=== PATIENT | male | born 1965 | race Caucasian/White ===

== ENCOUNTER 2021-08-19 13:00 | Inpatient (IN) | payer OTHER ==
[~2021-08-19] VITALS: Ht 180.3 cm; Wt 148.8 kg
--- NOTE | 2021-08-19 13:00 | NUR ---
ARRIVAL PATIENT ARRIVED TO ED4 VIA W/C, C/O BILATERAL LEG AND ABDOMEN SWELLING FOR THE PAST COUPLE OF DAYS, WENT TO SEE HIS PCP AND WAS SENT TO THE ED FOR EVAL, VITAL SIGNS OBTAINED AND DOCTOR NOTIFIED OF PATIENT'S ARRIVAL.
[2021-08-19 13:20] VITALS: BP 142/102
[2021-08-19 13:25] VITALS: BP 142/102
[2021-08-19] MEDS ORDERED: LASIX IV STA (13:28)
[2021-08-19] MEDS ORDERED: LISI1TAB41 PO (13:32)
[2021-08-19] MEDS ORDERED: LASIX ONE (13:39)
[2021-08-19 13:43] LABS: BASOPHIL % 0.6 % (0.0-0.2); EOSINOPHIL % 0.3 % (0.0-5.0); LYMPHOCYTES # 1.52 10^3/uL1 (1.0-4.8); LYMPHOCYTES % 21.8 % (24.0-44.0); MEAN CORP HGB 30.2 pg (26-34); MONOCYTES # 0.5 10^3/uL (0.3-0.8); MONOCYTES % 6.9 % (5.0-12.0); NEUTROPHIL # 4.9 10^3/uL (1.8-7.7); NEUTROPHILS % 70.1 % (41.0-85.0); PLATELET COUNT 272 10^3/uL (150-400); RED CELL DISTRIBUTION WIDTH 14.7 % (11.5-14.5)
--- NOTE | 2021-08-19 13:44 | PCM.EKG ---
[facility] Test Date: 2021-08-19 Test Time: 13:40:26 Pat Name: TRACI GAINES [facility]: [id number] Room: Gender: M Admissions Manager Rn: UBALDO : 1965 Requested By: BISHOP TRIVEDI Order Number: [id number] Reading MD: Measurements Intervals [place] Rate: 130 P: ID: QRS: 54 QRSD: 90 T: 70 QT: 335 QTc: 493 Interpretive Statements Atrial fibrillation Borderline low voltage, extremity leads Nonspecific T abnormalities, lateral leads Borderline prolonged QT interval No previous ECG available for comparison Please click the below link to view image of tracing.
[2021-08-19] MEDS ORDERED: METO50TA6 PO (13:46)
[2021-08-19] MEDS ORDERED: APIX5TAB PO (13:47)
[2021-08-19] MEDS ORDERED: CARDIZEM IV STA (13:50)
[2021-08-19] MEDS ORDERED: CARDIZEM PO STA (13:50)
--- NOTE | 2021-08-19 13:54 | ER.PDOC ---
General Chief Complaint: Extremities Stated Complaint: SWELLING/LEGS Time seen by MD: 13:33 Source: patient Exam Limitations: no limitations History of Present Illness Initial Comments 31 lb weight gain over the last 3 weeks and PND or orthopnea, and worsening leg edema, noncompliant with rate control medications for his A. fib Timing/Duration: 1 week Severity: moderate Activities at Onset: activity/exertion Prior Episodes/Possible Cause: no prior episodes Modifying Factors: improves with activity, improves with lying down, improves with rest Associated Symptoms: edema Allergies: Coded Allergies: No Known Allergies (Unverified , 08/19/21) Home Meds Reported Medications Apixaban (Eliquis) 5 Mg Tablet, 5 MG PO BID, TABLET 08/19/21 Metoprolol Tartrate 50MG (LOPRESSER 50MG) 50 Mg Tablet, 1 TAB PO BID, #60 TAB 5 Refills 08/19/21 Lisinopril/Hydrochlorothiazide (LISINOPRIL-HCTZ 20-25 MG TAB) 1 Each Tablet, 1 TAB PO DAILY, #30 TAB 5 Refills 08/19/21 Past Medical History Medical History: hypertension Surgical History: knee Social History Alcohol Use: occassionally Drug Use: none Reviewed Nursing Reviewed: Vital Signs, Abn. Noted Review of Systems All Other Systems: Reviewed and Negative Physical Exam General Appearance: No Apparent Distress, WD/WN HEENT: PERRL/EOMI, Normal ENT Inspection, TMs Normal, Pharynx Normal Neck: Non-Tender, Full Range of Motion, Supple, Normal Inspection Respiratory: chest non-tender, lungs clear, normal breath sounds, no respiratory distress, no accessory muscle use Gastrointestinal: Distended, Other (edema, erythema) Extremities: Normal Range of Motion, Inflammation, Pedal Edema, Swelling Neurologic/Psychiatric: medical records specialist II-XII NML as Tested, No Motor/Sensory Deficits, Alert, Normal Mood/Affect, Oriented x 3 Skin: Normal Color, Warm/Dry Lymphatic: No Adenopathy Results/Orders Results/Orders Orders - BISHOP TRIVEDI MD Covid19 Antigen Sugey Renetta (08/19/21 13:27) Cbc With Auto Diff (08/19/21 13:28) Comprehensive Metabolic Panel (08/19/21 13:28) Creatine Kinase (08/19/21 13:28) Creatine Kinase Mb (08/19/21 13:28) Probnp B-Type Spiral Binder (08/19/21 13:28) PT (08/19/21 13:28) Partial Thromboplastin Time. (08/19/21 13:28) D-Dimer (08/19/21 13:28) Xr Chest 1v (08/19/21 13:28) Ekg-Routine (08/19/21 13:28) Troponin I High Sensitivity (08/19/21 13:28) Furosemide (Lasix) (08/19/21 13:28) Furosemide (Lasix) (08/19/21 13:39) Diltiazem Hcl (Cardizem) (08/19/21 13:50) Diltiazem Hcl (Cardizem) (08/19/21 13:50) Diltiazem Hcl (Cardizem) (08/19/21 14:10) Diltiazem Hcl (Cardizem) (08/19/21 14:11) Vital Signs Date Time Temp Pulse Resp B/P (MAP) Pulse Ox O2 Delivery O2 Flow Rate FiO2 08/19/21 14:17 114 158/97 08/19/21 14:17 125 08/19/21 13:45 142/102 08/19/21 13:25 97.7 84 22 142/102 (115) 96 Room Air 08/19/21 13:20 97.7 84 22 142/102 (115) 96 Room Air 08/19/21 13:20 97.7 84 22 08/19/21 13:20 97.7 84 22 96 Administered Medications Medications (Trade) Dose Ordered Sig/Delaney Route PRN Reason Start Time Stop Time Status Last Admin Dose Admin Diltiazem HCl (Cardizem) 20 mg STAT STAT IV 08/19/21 13:50 08/19/21 13:54 DC 08/19/21 14:17 20 MG Diltiazem HCl (Cardizem) 30 mg STAT STAT PO 08/19/21 13:50 08/19/21 13:54 DC 08/19/21 14:17 30 MG Furosemide (Lasix) 40 mg STAT STAT IV 08/19/21 13:28 08/19/21 13:31 DC 08/19/21 13:45 40 MG Laboratory Tests Test 08/19/21 13:25 08/19/21 13:34 SARS-CoV-2 Antigen (Rapid) NEGATIVE (NEGATIVE) White Blood Count 7.0 10^3/uL (4.5-11.0) Red Blood Count 5.27 10^6/uL (4.50-5.90) Hemoglobin 15.9 g/dL (13.9-16.3) Hematocrit 48.2 % (37.0-53.0) Mean Corpuscular Volume 91.5 fL (78-100) Mean Corpuscular Hemoglobin 30.2 pg (26-34) Mean Corpuscular Hemoglobin Concent 33.0 g/dL (33-36.5) Red Cell Distribution Width 14.7 % (11.5-14.5) H Platelet Count 272 10^3/uL (150-400) Mean Platelet Volume 9.6 fL (7.8-11.0) Neutrophils (%) (Auto) 70.1 % (41.0-85.0) Lymphocytes (%) (Auto) 21.8 % (24.0-44.0) L Monocytes (%) (Auto) 6.9 % (5.0-12.0) Neutrophils # (Auto) 4.9 10^3/uL (1.8-7.7) Lymphocytes # (Auto) 1.52 10^3/uL1 (1.0-4.8) Monocytes # (Auto) 0.5 10^3/uL (0.3-0.8) Absolute Immature Granulocyte (auto 0.02 10^3 u/L (0-2) Absolute Eosinophils (auto) 0.0 10^3/uL (0.0-0.2) Immature Granulocytes % 0.30 % (0.00-0.50) Eosinophils % 0.3 % (0.0-5.0) Basophils % 0.6 % (0.0-0.2) H Basophils # 0.0 10^3/uL (0.0-0.1) Prothrombin Time 14.5 SEC (9.1-11.5) H Prothrombin Time INR (Non-Therap) 1.4 Activated Partial Thromboplast Time 28.1 SEC (22.5-33.1) D-Dimer 2.98 mg/L (0.19-0.49) *H Sodium Level 128 mmol/L (132-145) L Potassium Level 3.8 mmol/L (3.6-5.2) Chloride Level 93.0 mmol/L (96-109) L Carbon Dioxide Level 27.3 mmol/L (20.0-32) Anion Gap 11.5 Blood Urea Nitrogen 16 mg/dL (7-18) Creatinine 0.92 mg/dL (0.59-1.40) Estimated GFR () 103.7 (>/=60) Est GFR (CKD-EPI)(Non-Afr [place]ogolese) 85.7 (>/=60) BUN/Creatinine Ratio 17.0 Glucose Level 94 mg/dL (70-110) Calcium Level 8.5 mg/dL (8.4-10.5) Total Bilirubin 2.2 mg/dL (0.2-1.0) H Aspartate Amino Transferase (AST) 35 U/L (0-35) Alanine Aminotransferase (ALT) 24 U/L (12-78) Alkaline Phosphatase 125 U/L (50-136) Total Creatine Kinase 84 U/L (39-308) Creatine Kinase MB 3.4 ng/mL (0.5-3.6) Troponin I High Sensitivity 25 ng/L (0-75) Pro-B-Type Natriuretic Peptide 6164 pg/mL (0-125) H Total Protein 7.0 g/dL (6.4-8.2) Albumin 2.8 g/dL (3.4-5.0) L Globulin 4.2 Albumin/Globulin Ratio 0.666 Consult/PCP Time Consult/PCP Called: 15:00 Consult/PCP: DR LUCERO MICHELE Departure Time of Disposition: 15:00 Disposition: 01 HOME / SELF CARE / HOMELESS Impression: Primary Impression: CHF (congestive heart failure) Condition: Improved Referrals: PARESH LANDERS NURSE [facility] (PCP) PRIMARY CARE PROVIDER Duration or Time Spent with Pa: 15M Return to Work/School Can a patient return to work?: No Can a patient return to school: No BISHOP TRIVEDI MD Aug 19, 2021 13:54
--- NOTE | 2021-08-19 14:06 | DIREP ---
PROCEDURE:CHEST 1 VIEW COMPARISON:None. INDICATIONS:CHF FINDINGS: LUNGS/PLEURA:Interstitial prominence, predominantly at the lung bases. Small effusions, right greater than left. No pneumothorax VASCULATURE:Normal. Unremarkable pulmonary vasculature. CARDIAC:Mild cardiomegaly MEDIASTINUM:Normal. No visible mass or adenopathy. BONES:Normal. No fracture or visible bony lesion. OTHER:Negative. CONCLUSION:Findings in keeping with mild congestive heart failure. Atypical pneumonia in the differential Dictated by: Arnol Thao MD on 08/19/2021 at 02:04 PM
[2021-08-19] MEDS ORDERED: CARDIZEM ONE (14:10)
[2021-08-19] MEDS ORDERED: CARDIZEM IV ONE (14:11)
[2021-08-19 14:24] LABS: CARBON DIOXIDE 27.3 mmol/L (20.0-32)
--- NOTE | 2021-08-19 14:40 | NUR ---
LUCERO CONNER ON PHONE WITH AT THIS TIME REGARDING ADMISSION.
[2021-08-19 14:43] VITALS: BP 153/86
[2021-08-19] MEDS ORDERED: AMBIEN PO PRN (16:30)
[2021-08-19] MEDS ORDERED: TYLENOL PO PRN (16:30)
[2021-08-19 16:33] VITALS: BP 151/77
[2021-08-19] MEDS: CARDIZEM PO SCH ×2 (17:43→23:44)
[2021-08-19] MEDS: ELIQUIS PO SCH ×2 (21:00→21:31)
[2021-08-19 21:09] VITALS: BP 128/88
[2021-08-19] MEDS: LASIX IV SCH (21:32)
[2021-08-20 00:59] VITALS: BP 135/100
[2021-08-20 05:23] LABS: CARBON DIOXIDE 29.4 mmol/L (20.0-32)
[2021-08-20] MEDS: CARDIZEM PO SCH ×2 (05:31→12:41)
[2021-08-20 05:36] LABS: BASOPHIL % 0.4 % (0.0-0.2); EOSINOPHIL # 0.1 10^3/uL (0.0-0.2); EOSINOPHIL % 1.3 % (0.0-5.0); LYMPHOCYTES # 1.43 10^3/uL1 (1.0-4.8); LYMPHOCYTES % 20.8 % (24.0-44.0); MEAN CORP HGB 30.6 pg (26-34); MONOCYTES # 0.5 10^3/uL (0.3-0.8); MONOCYTES % 7.1 % (5.0-12.0); NEUTROPHIL # 4.8 10^3/uL (1.8-7.7); NEUTROPHILS % 70.4 % (41.0-85.0); PLATELET COUNT 266 10^3/uL (150-400); RED CELL DISTRIBUTION WIDTH 14.7 % (11.5-14.5)
[2021-08-20 06:03] VITALS: BP 159/106
[2021-08-20 07:47] VITALS: BP 131/78
--- NOTE | 2021-08-20 08:43 | PCM.HP ---
History of Present Illness Reason for Visit: Shortness of breath and leg edema. History of Present Illness 56-year-old male with history of hypertension, paroxysmal A. fib, morbid obesity presented emergency room with shortness of breath, leg edema. Patient also describes orthopnea. Work-up in the emergency room patient was in A. fib with RVR. Patient was given IV diltiazem. Heart rate went down to the 90s. Patient was supposed to be on metoprolol but according to him he stopped taking it because he had a bad reaction to it??. In the emergency room patient was given IV Lasix. Patient also was found to be hyponatremic. Patient is being admitted hospital for further management. Past Medical History Cardiac: AFIB, HTN Past Surgical History: No pertinent hx Past Social History Smoke: No Alcohol: none Review of Systems Respiratory: Shortness of breath, SOB with excertion Cardiovascular: Palpitations, Orthopnea Other Review of other 14 systems negative except was mentioned is present illness. Allergies: Coded Allergies: No Known Allergies (Unverified , 08/19/21) Scheduled Apixaban (Eliquis), 5 MG PO BID, (Reported) Lisinopril/Hydrochlorothiazide (Lisinopril-Hctz 20-25 Mg Tab), 1 TAB PO DAILY, (Reported) Metoprolol Tartrate 50MG (Lopresser 50MG), 1 TAB PO BID, (Reported) VTE VTE Risk Total Score: 5 VTE Risk Score VTE Risk: Score 0-1 = Low Risk (Aggressive mobilization; early ambulation; no VTE prophylaxis required) Score 2: Moderate Risk (Intermittent/Pneumatic Compression Device OR Lovenox/Heparin/Coumadin) Score 3-4: High Risk (Intermittent/Pneumatic Compression Device AND Lovenox/Heparin/Coumadin) Score > or =5: Highest Risk (Intermittent/Pneumatic Compression Device AND Lovenox/Heparin/Coumadin) Antico:Hep/LMWH/Coum/Xarelto: Yes VTE VTE Present on Admission: Yes Currently receiving anticoagul: Yes VTE Risk Total Score: 5 Exam Vital Signs Vital Signs Date Time Temp Pulse Resp B/P (MAP) Pulse Ox O2 Delivery O2 Flow Rate FiO2 08/20/21 07:47 97.8 93 18 131/78 (95) 98 08/20/21 06:03 Room Air General Appearance: Alert, Oriented X3, moderate distress, Other (Orthopneic) HEENT: Atraumatic, PERRLA Respiratory: Other (Diminished air entry bilaterally) Cardiovascular: Other (Irregularly irregular) Abdominal: Normal bowel sounds, Soft, No tenderness Extremities: Other (3+ edema) Skin: No lesions Neuro: Normal speech, Normal tone Psych/Mental Status: Mental status NL, Mood NL Assessment/Plan Assessment/Plan Assessment/Plan Plan 56-year-old male with history of hypertension, paroxysmal A. fib, morbid obesity presented emergency room with shortness of breath, leg edema. Patient also describes orthopnea. Work-up in the emergency room patient was in A. fib with RVR. Patient was given IV diltiazem. Heart rate went down to the 90s. Patient was supposed to be on metoprolol but according to him he stopped taking it because he had a bad reaction to it??. In the emergency room patient was given IV Lasix. Patient also was found to be hyponatremic. Patient is being admitted hospital for further management. Admit Telemetry monitoring Rate controlled with diltiazem IV diuresis Monitor and correct electrolytes Hyponatremia probably secondary to hypervolemia, will start IV Lasix and monitor sodium Trend troponin 2D echo Consult cardiology for evaluation further management DVT prophylaxis continue home anticoagulant Expect length of stay more than 1 midnight Problems: (1) Atrial fibrillation with RVR ICD Code: I48.91 - Unspecified atrial fibrillation SNOMED: 282982360324563 (2) Acute CHF ICD Code: I50.9 - Heart failure, unspecified SNOMED: 13071203 (3) Hyponatremia ICD Code: E87.1 - Hypo-osmolality and hyponatremia SNOMED: 22549173 (4) Hypertension ICD Code: I10 - Essential (primary) hypertension SNOMED: 43699111 (5) Morbid obesity ICD Code: E66.01 - Morbid (severe) obesity due to excess calories SNOMED: 689316439 LUCERO GREGG MD Aug 20, 2021 08:43
[2021-08-20] MEDS ORDERED: TOPROL XL PO SCH (09:00)
[2021-08-20] MEDS: PROTONIX PO SCH (09:53)
[2021-08-20] MEDS: ELIQUIS PO SCH (09:53)
[2021-08-20] MEDS: FARXIGA PO SCH (09:53)
[2021-08-20] MEDS: LASIX IV SCH ×2 (09:53→20:49)
[2021-08-20] MEDS: ZESTRIL PO SCH (09:54)
[2021-08-20 11:14] VITALS: BP 152/72
--- NOTE | 2021-08-20 13:26 | PCM.EKG ---
[facility] Test Date: 2021-08-20 Test Time: 13:24:30 Pat Name: TRACI GAINES [id number] Room: 335 A Gender: M Sorter/Assay Tech: : [id number] Requested By: COURTNEY ROUSE Order Number: [id number] Reading MD: Measurements Intervals [place] Rate: 101 P: MS: QRS: -45 QRSD: 106 T: 114 QT: 340 QTc: 441 Interpretive Statements Atrial fibrillation Ventricular premature complex LAD, consider left anterior fascicular block Borderline low voltage, extremity leads Nonspecific T abnormalities, lateral leads Compared to ECG 08/19/2021 13:40:26 Ventricular premature complex(es) now present T-wave abnormality still present Please click the below link to view image of tracing.
--- NOTE | 2021-08-20 14:34 | PCM.ECHO ---
APPROVED REPORT EXAM: Comprehensive 2D, Doppler, and color-flow Echocardiogram. Patient Location: IN-PATIENT Indications Congestive Heart Failure New onset CHF 2D Dimensions LVOT Diameter 2.33 (1.8-2.4cm) LVEF(%) 37.63 (>50%) M-Mode Dimensions RVDd 3.75 (2.1-3.2cm) Left Atrium(MM) 5.20 (2.5-4.0cm) IVSd 1.00 (0.7-1.1cm) Aortic Root 2.30 (2.2-3.7cm) LVDd 6.00 (4.0-5.6cm) Aortic Cusp Exc 2.05 (1.5-2.0cm) PWd 0.65 (0.7-1.1cm) MV EPSS 1.22 (<0.5cm) IVSs 1.10 cm FS (%) 21.55 % LVDs 4.70 (2.0-3.8cm) ESV(Teich) 104.36 ml PWs 1.65 cm LVEF(%) 42.97 (>50%) Volumes Biplane 2D LV Volumes Biplane 2D LA Volumes LVESv A2C LA ESV A4C 93.03 mL/m2 LVEDv A4C 178.96 mL LA ESV Index LVESv A4C 111.61 mL Aortic Valve AoV Peak Stewart. 0.80 m/s AoV VTI 13.90 cm AO Peak GR. 2.70 mmHg AO Mean GR. 1.75 mmHg LVOT VTI 13.76 cm LVOT Peak Stewart. 0.82 m/s BRANDON(VTI)/BSA 4.20 cm2/m2 BRANDON (VTI) 4.20 cm2 Mitral Valve MV E Velocity 0.80m/s MR Peak Gr. 16.95mmHg MV A Velocity 0.30m/s Pulmonary Valve PV Peak Velocity 0.60m/s PV Peak Grad. 1.55mmHg RVOT VTI 12.19cm Tricuspid Valve TR P. Velocity 2.75m/s RAP ESTIMATE 10.00mmHg TR Peak Gr. 31.11mmHg RVSP 41.11mmHg LEFT VENTRICLE The left ventricle is normal size. Left ventricular systolic function is severely decreased. There is normal left ventricular wall thickness. There is global hypokinesis of the left ventricle. Severe diastolic dysfunction is present (restrictive filling). There is no ventricular septal defect visualized. No left ventricle thrombus noted on this study. LVEF is 20-25%. RIGHT VENTRICLE The right ventricle is normal size. Right ventricular systolic function is severely reduced. There is normal right ventricular wall thickness. ATRIA Left atrium is severely dilated. Right atrium is severely dilated. The interatrial septum is intact with no evidence for an atrial septal defect. AORTIC VALVE The aortic valve is normal in structure. There is no aortic valvular stenosis. Mild aortic regurgitation. There is no aortic valvular vegetation. MITRAL VALVE The mitral valve is normal in structure. There is no mitral valve stenosis. Moderate to severe mitral regurgitation There is no evidence of mitral valve vegetations. TRICUSPID VALVE The tricuspid valve is normal in structure. There is no tricuspid valve stenosis. Severe tricuspid regurgitation. Severe pulmonary hypertension. There is no tricuspid valve vegetations. PULMONIC VALVE Pulmonic valve is not well visualized. There is no pulmonic valvular stenosis. Moderate pulmonic regurgitation. There is no pulmonic valve vegetations. GREAT VESSELS The aortic root is normal in size. Pulmonary artery is not well visualized. Aortic arch is not well visualized. The IVC is normal in size and collapses >50% with inspiration. PERICARDIUM There is no pericardial effusion. Moderate right pleural effusion. Small left pleural effusion. Ascites is present. Other Information Study Quality: Fair Further Testing Further Testing : For further evaluation ROSA is recommended. <Conclusion> Left ventricular systolic function is severely decreased. LVEF is 20-25%. There is global hypokinesis of the left ventricle. Severe diastolic dysfunction is present (restrictive filling). Left atrium is severely dilated. Right atrium is severely dilated. Mild aortic regurgitation. Moderate to severe mitral regurgitation Severe tricuspid regurgitation. Severe pulmonary hypertension. Moderate pulmonic regurgitation. Moderate right pleural effusion. Small left pleural effusion. Ascites is present. Electronically signed by : COURTNEY ROUSE. 08/20/2021 14:34:16
[2021-08-20 15:01] LABS: BASOPHIL % 0.4 % (0.0-0.2); EOSINOPHIL # 0.1 10^3/uL (0.0-0.2); EOSINOPHIL % 0.8 % (0.0-5.0); LYMPHOCYTES # 1.19 10^3/uL1 (1.0-4.8); LYMPHOCYTES % 16.9 % (24.0-44.0); MEAN CORP HGB 30.1 pg (26-34); MONOCYTES # 0.5 10^3/uL (0.3-0.8); MONOCYTES % 6.8 % (5.0-12.0); NEUTROPHIL # 5.3 10^3/uL (1.8-7.7); RED CELL DISTRIBUTION WIDTH 14.9 % (11.5-14.5)
[2021-08-20 15:05] VITALS: BP 152/94
[2021-08-20] MEDS: HEPARIN-D5W 20,000 UNIT/500 ML 500 ML IV SCH (16:07)
--- NOTE | 2021-08-20 16:25 | NUR ---
DISCHARGE PLAN - [facility] CM VISITED WITH PATIENT ABOUT DISCHARGE PLANS AND NEEDS. PATIENT CURRENTLY LIVES@HOME ALONE AND IND WITH ADL. PATIENT REPORTS THAT HE HAS FRIENDS AND RELATIVES THAT ARE SUPPORTIVE IF HE NEEDS SOMETHING. PATIENT DENIES HAVING ANY DME OR NEEDING ANY DME. PATIENT SEE'S PARESH LANDERS NP FOR PCP. CM RECEIVED ORDER FOR REQUEST FOR [facility]. CM OBTAINED ORDER FROM DR ROUSE FOR [facility] AND FAXED [facility] ORDER TO [phone]. FAX CONFIRMATION CONFIRMED COMPLETE. [facility] AND SPOKE WITH MAUREEN AND INFORMED OF NEW [facility] REQUEST. DENIES ANY FURTHER NEEDS TO INITIATE [facility].
[2021-08-20 20:16] VITALS: BP 119/76
[2021-08-20] MEDS: BETAPACE PO SCH (20:49)
[2021-08-21 00:20] VITALS: BP 116/84
[2021-08-21 03:09] LABS: BASOPHIL % 0.6 % (0.0-0.2); EOSINOPHIL # 0.1 10^3/uL (0.0-0.2); EOSINOPHIL % 1.6 % (0.0-5.0); LYMPHOCYTES # 1.14 10^3/uL1 (1.0-4.8); MEAN CORP HGB 30.2 pg (26-34); MONOCYTES # 0.5 10^3/uL (0.3-0.8); MONOCYTES % 7.6 % (5.0-12.0); NEUTROPHIL # 4.6 10^3/uL (1.8-7.7); NEUTROPHILS % 72.2 % (41.0-85.0); PLATELET COUNT 224 10^3/uL (150-400)
[2021-08-21 03:22] LABS: CARBON DIOXIDE 27.4 mmol/L (20.0-32)
--- NOTE | 2021-08-21 03:46 | CNH ---
DATE OF CONSULTATION: 08/20/2021 DICTATOR NAME: COURTNEY ROUSE DO REASON FOR CONSULTATION: New-onset decompensated heart failure/atrial fibrillation with rapid ventricular response. HISTORY OF PRESENT ILLNESS: This is a 56-year-old male who presented to the Emergency Room with progressively worsening shortness of breath, orthopnea and paroxysmal nocturnal dyspnea that he has been experiencing for the last three weeks. He also reports worsening bilateral lower extremity edema that prompted him to report to the hospital. Upon presentation, his proBNP was noted to be significantly elevated at 6164. High-sensitive troponin was negative x2. EKG done upon presentation revealed atrial fibrillation with a rapid ventricular response and a heart rate of 125 beats per minute. He does have a history of atrial fibrillation, but he is noncompliant to his rate controlling medications. A consultation was placed to Cardiology Service for evaluation for AFib with RVR and new onset congestive heart failure. PAST MEDICAL HISTORY: Significant for: 1. Atrial fibrillation. 2. Hypertension. PAST SURGICAL HISTORY: Knee surgery. MEDICATIONS: He takes at home: 1. Eliquis 5 mg p.o. b.i.d. 2. Metoprolol tartrate 50 mg p.o. b.i.d. 3. Lisinopril/hydrochlorothiazide 20/25 mg p.o. every day. ALLERGIES: He has no known drug allergies. FAMILY HISTORY: He denies any family history of premature coronary artery disease or sudden cardiac . SOCIAL HISTORY: He denies tobacco use, denies alcohol use, denies illicit drug use. REVIEW OF SYSTEMS: As per HPI and as per previous records. All systems are reviewed and negative for interval change. PHYSICAL EXAMINATION: VITAL SIGNS: Blood pressure is currently 152/72, respiratory rate is 18, pulse is 73, temperature is 98.3, pulse oximetry 97% on room air. GENERAL: He is in no apparent distress, morbidly obese, alert and oriented x3. HEENT: Normocephalic, atraumatic. Extraocular muscles intact. Pupils equally round, reactive to light and accommodation. CARDIAC: S1, S2, irregularly irregular, +3/6 holosystolic murmur. No gallops, rubs or clicks. LUNGS: Decreased breath sounds bilaterally. ABDOMEN: Obese. Hypoactive bowel sounds with signs of ascites present. Positive fluid thrill. EXTREMITIES: +3 pitting edema bilaterally. No cyanosis, no clubbing. NEUROLOGIC: No neurological deficits. Sensation is intact. IMPRESSION: 1. New-onset decompensated heart failure secondary to systolic and diastolic dysfunction. 2. Atrial fibrillation with rapid ventricular response. 3. Left ventricular ejection fraction of 20%-25% on 2D echo done this admission. 4. Severe biatrial dilatation. 5. Severe tricuspid regurgitation. 6. Severe pulmonary hypertension. 7. Bilateral pleural effusions noted on 2D echo. 8. Significant amount of ascites noted on 2D echo. 9. Hypertension. 10. Noncompliance to rate controlling medications for atrial fibrillation. 11. Morbid obesity. RECOMMENDATIONS: This is a 56-year-old male who presented to the Emergency Room with progressively worsening shortness of breath with orthopnea and paroxysmal nocturnal dyspnea. He was also noted to have worsening bilateral lower extremity edema. Upon presentation, his proBNP was noted to be significantly elevated and a diagnosis of new onset decompensated heart failure was made. He has a known history of atrial fibrillation, but he is noncompliant to his rate controlling medications. I suspect decompensated heart failure is due to tachyarrhythmia. 2D echo shows a left ventricular ejection fraction of 20%-25% with severe global hypokinesis of the left ventricle. He is also noted to have multivalvular disease. He will be started on sotalol 80 mg p.o. b.i.d. for rate and rhythm control. He is currently on Lasix 40 mg IV b.i.d. I would recommend fluid restriction to 1 liter a day, strict I's and O's, daily weights as well as sodium restriction. He will be started on lisinopril 20 mg p.o. daily as well as Farxiga 10 mg p.o. daily. In view of his cardiomyopathy as noted on 2D echo, he will be set up for left heart catheterization to rule out an ischemic substrate once he becomes euvolemic and after Eliquis washout. Eliquis is currently held and he has been started on heparin drip for anticoagulation for his atrial fibrillation. I anticipate left heart catheterization after 2-3 days of Eliquis washout. He also would benefit from a wearable cardioverter device for primary prevention of sudden cardiac given his low ejection fraction. A consultation has been placed to nursing home social worker for LifeVest fitting before discharge. He would benefit from a transesophageal echocardiogram to evaluate his multivalvular insufficiency; however, this will be set up in the outpatient setting. Incidentally, he was noted to have bilateral pleural effusions as well as significant amount of ascites on 2D echo. I would recommend CT of the chest and abdomen to further evaluate his effusion and ascites to determine if thoracentesis/paracentesis is needed. I will defer to the hospitalist for management of his pleural effusions/ascites. Eventually, after he gets discharged, he has been instructed to follow up with me in the clinic. He certainly would benefit from implantation of a CardioMEMS pulmonary artery sensor for remote monitoring of his pulmonary arterial pressures. This will be set up in the outpatient setting. Further recommendations will be made based on his overall clinical course. Mychal GARCIA D.O. DR: JOANNE TIInessa: [id number] RECEIPT: [id number] MTDD
[2021-08-21 04:28] VITALS: BP 117/93
--- NOTE | 2021-08-21 09:52 | DIET.OP ---
Nutrition Asmt/Malnutrit 2-17 Actual Date of Review: Aug 21, 2021 Actual Time Reviewed Asmt: 09:46 Nutritional Screening: Malnutr/Diet Consult Diagnosis: Afib, Acute CHF, Hyponatermia, New HF, HTN Pertinent Medical Hx/Surgical: HTN, Morbid Obesity, Knee surgery Subjective Information: 56 yo male, presented in ER with SOB, 3+ BLE Edema, stated lost 34 lbs x 12 months. Current Diet Order/Nutrition S: Cardiac Patient /S.O: Not Indicated Pertinent Meds IV Lasix, Tylenol, Protonix, Zestril, Betapace, Ambien Pertinent Labs Hgb 14.5L, Hct 44.1, Na+ 133, K+ 3.7, BUN 15, Glu 110, Ca+ 8.2L, Alb 2.8L Height (Inches): 71 Current Weight: 331 %IBW: 198 Recent Weight Change: Yes (34# loss x 12 months, 8.7% not significant) Weight Status: Morbid Obese GI Symptoms: None GI Comments notes states ascites stomach Food Allergies: No (NKFA) Cultural/Ethnic/Gnosticism Laura: unable to obtain Skin Integrity/Comment: Yes (skin intact) Current %PO: Good(75-100%) (PO intake 100% all meals) BEE in Kcals: Use Current Weight Calories/Kcals/K-14 Kcals Calculated: 9116-1163 Protein: Use Current Weight Protein g/k.1-1.3 Protein Calculated: 165-195 Fluid: ml: 7328-3456 (20-25) or per MD order Nutritional Problem: Nutr. Problems Present Problems: Morbid Obesity Etiology: Excessive energy intake Signs/Symptoms: BMI above normatic standard for age and gender (45.2) Fluid Accumulation (Severe): Mod to Severe Retention (3+ edema BLE) Reduced Configuration Technician Strength (N/A): N/A Protein-Calorie Malnutrition: N/A Is there a minimum of two crit: No Malnutrition related to morbid: BMI>or equal to 40 (45.2) RD Comments: PO intake good 100% all meals, weight loss x 2 months 8.7%, not significant Expected Outcomes Stable w/adequate hydration, skin integrity, labs WNL, nutrition needs met within 3 days. Malnutrtion/Nutrition Risk Edu: No low nutrition risk RD Follow-Up Date: Aug 28, 2021 Notificiation Needed?: No YVES MICHAELS Aug 21, 2021 09:52
--- NOTE | 2021-08-21 10:00 | NUR ---
DISCHARGE PLAN - LIFE VEST CM CONTACTED [email or web address] TO INQUIRE ABOUT STATUS OF LIFE VEST. PER CLARENCE Bruce MD NEEDED TO FILL OUT INSURANCE PAPER FROM [employer] AND AN UPDATED PROGRESS NOTE WITH SAME DX INCLUDED ON LIFE VEST ORDER - TACHYCARDIA INDUCED CARDIOMYOPATHY(AFIB). CM NOTIFIED DR ROUSE AND DELIVERED [employer] ORDER FOR INSURANCE AND HE SIGNED AND FILLED OUT [employer] PAPERWORK. DR ROUSE REPORTS AFTER HE SEE'S PATIENT HE WILL MAKE SURE THAT HIS DX FOR [facility] IS INCLUDED. CM FAXED [facility] PAP[facility]WORK AND YESTERDAY'S CARD CONSULT NOTE TO [employer]@[phone]. FAX CONFIRMATION CONFIRMED COMPLETE. CM WILL CONTINUE TO FOLLOW AND WILL FAX PROGRESS NOTE WHEN COMPLETED VIA MD.
[2021-08-21 10:02] VITALS: BP 129/101
[2021-08-21] MEDS: FARXIGA PO SCH (10:07)
[2021-08-21] MEDS: PROTONIX PO SCH (10:07)
[2021-08-21] MEDS: LASIX IV SCH ×2 (10:07→20:58)
[2021-08-21] MEDS: BETAPACE PO SCH ×2 (10:08→20:59)
[2021-08-21] MEDS: ZESTRIL PO SCH (10:08)
--- NOTE | 2021-08-21 10:50 | NUR ---
PT LEFT UNIT VIA WHEELCHAIR, ACCOMPANIED BY CT AND NURSING X1. NO ACUTE DISTRESS NOTED AT THIS TIME.
--- NOTE | 2021-08-21 11:00 | NUR ---
PT ARRIVED BACK ON UNIT VIA WHEELCHAIR ACCOMPANIED BY NURSING X1. NO ACUTE DISTRESS NOTED AT THIS TIME.
--- NOTE | 2021-08-21 12:30 | NUR ---
DISCHARGE PLAN - LIFEVEST CM CONTACTED [facility] TO CONFIRM THAT THEY HAVE RECEIVED THE CIGNA INSURANCE FORM. INFORMED@THIS TIME THAT [employer]IG[employer] FORM IN COMPLETE DUE TO DATE SENT ON FAX LEFT BLANK. FAX WITH TIME AND DATE. DATE ENTERED ON [employer] FORM AND REFAXED TO [facility]@[phone]. CM INFORMED@THIS TIME THAT [facility] HAD A NEW MEDIA RECONCILIATION SPECIALIST AND HER CONTACT INFORMATION IS AQUILINO ROSSI@[phone]. MOSES ATTEMPTED TO CONTACT AQUILINO FOR ASSISTANCE AND CM LEFT VM. CM AWAITING RETURN PHONE CALL.
--- NOTE | 2021-08-21 12:41 | NUR ---
PATIENT HAD A SHORT RUN OF VENTRICULAR TACHYCARDIA, UNABLE TO OBTAIN EKG, DR. MELENDEZ NOTIFIED.
--- NOTE | 2021-08-21 13:18 | PRM.PN ---
Subjective Subjective Date: Aug 21, 2021 Time: 09:00 Subjective Patient feeling somewhat better this morning, less short of breath, less edema. 2D echo showed EF 20-25%. Discussed with sugar mixer. Patient scheduled for heart cath tomorrow. Eliquis was discontinued and patient was started on IV heparin drip as per sugar mixer. CT abdomen and chest being done to evaluate for pleural effusion and ascites. VTE VTE Risk Total Score: 5 VTE Risk Score VTE Risk: Score 0-1 = Low Risk (Aggressive mobilization; early ambulation; no VTE prophylaxis required) Score 2: Moderate Risk (Intermittent/Pneumatic Compression Device OR Lovenox/Heparin/Coumadin) Score 3-4: High Risk (Intermittent/Pneumatic Compression Device AND Lovenox/Heparin/Coumadin) Score > or =5: Highest Risk (Intermittent/Pneumatic Compression Device AND Lovenox/Heparin/Coumadin) Antico:Hep/LMWH/Coum/Xarelto: Yes Review of Systems Respiratory: Shortness of breath, SOB with excertion Cardiovascular: Palpitations, Orthopnea Gastrointestinal: Other (Abdominal distention) Other Review of other 14 systems negative except was mentioned above. Allergies: Coded Allergies: No Known Allergies (Unverified , 08/19/21) Scheduled Apixaban (Eliquis), 5 MG PO BID, (Reported) Lisinopril/Hydrochlorothiazide (Lisinopril-Hctz 20-25 Mg Tab), 1 TAB PO DAILY, (Reported) Metoprolol Tartrate 50MG (Lopresser 50MG), 1 TAB PO BID, (Reported) Objective Vitals and I/O Vital Sign - Last 24 Hours 08/20/21 08/20/21 08/20/21 08/20/21 15:03 15:05 15:08 20:16 Temp 98.4 98.1 Pulse 58 66 Resp 17 18 B/P (MAP) 152/94 (113) 119/76 (90) Pulse Ox 94 93 O2 Delivery Room Air Room Air Room Air 08/20/21 08/20/21 08/21/21 08/21/21 20:28 20:49 00:20 04:28 Temp 98.5 97.7 Pulse 90 93 Resp 20 17 B/P (MAP) 119/76 116/84 (95) 117/93 (101) Pulse Ox 91 91 O2 Delivery Room Air Room Air Room Air 08/21/21 08/21/21 08/21/21 10:02 10:07 10:08 Temp 97.9 Pulse 79 Resp 18 B/P (MAP) 129/101 (110) 129/101 129/101 O2 Delivery Room Air Intake and Output 08/21/21 07:00 Output Total 700 ml Balance -700 ml General: Alert, Oriented X3, moderate distress, Other (Orthopneic) HEENT: Atraumatic, PERRLA Lungs: Other (Diminished air entry bilaterally) Heart: Other (Irregularly irregular) Abdomen: Normal bowel sounds, Soft, No tenderness, Other (Distended) Extremities: Other (3+ edema) Neuro: Normal speech, Normal tone Psych/Mental Status: Mental status NL, Mood NL All Results(Lab/Rad) Laboratory Tests Test 08/20/21 14:56 08/20/21 21:52 08/21/21 03:00 08/21/21 08:05 White Blood Count 7.1 10^3/uL 6.4 10^3/uL Red Blood Count 5.18 10^6/uL 4.80 10^6/uL Hemoglobin 15.6 g/dL 14.5 g/dL Hematocrit 48.7 % 44.1 % Mean Corpuscular Volume 94.0 fL 91.9 fL Mean Corpuscular Hemoglobin 30.1 pg 30.2 pg Mean Corpuscular Hemoglobin Concent 32.0 g/dL 32.9 g/dL Red Cell Distribution Width 14.9 % 15.0 % Platelet Count 259 10^3/uL 224 10^3/uL Mean Platelet Volume 9.2 fL 9.1 fL Neutrophils (%) (Auto) 75.0 % 72.2 % Lymphocytes (%) (Auto) 16.9 % 18.0 % Monocytes (%) (Auto) 6.8 % 7.6 % Neutrophils # (Auto) 5.3 10^3/uL 4.6 10^3/uL Lymphocytes # (Auto) 1.19 10^3/uL1 1.14 10^3/uL1 Monocytes # (Auto) 0.5 10^3/uL 0.5 10^3/uL Absolute Immature Granulocyte (auto 0.01 10^3 u/L 0 10^3 u/L Absolute Eosinophils (auto) 0.1 10^3/uL 0.1 10^3/uL Immature Granulocytes % 0.10 % 0.00 % Eosinophils % 0.8 % 1.6 % Basophils % 0.4 % 0.6 % Basophils # 0.0 10^3/uL 0.0 10^3/uL Activated Partial Thromboplast Time 26.1 SEC 28.3 SEC 27.0 SEC 34.0 SEC Sodium Level 133 mmol/L Potassium Level 3.7 mmol/L Chloride Level 96.0 mmol/L Carbon Dioxide Level 27.4 mmol/L Glucose Level 110 mg/dL Blood Urea Nitrogen 15 mg/dL Creatinine 1.00 mg/dL Calcium Level 8.2 mg/dL Anion Gap 13.3 Estimated GFR () 94.2 Est GFR (CKD-EPI)(Non-Afr [place] Islander) 77.9 BUN/Creatinine Ratio 15.0 Magnesium Level 1.4 mg/dL Test 08/21/21 12:07 Activated Partial Thromboplast Time 31.5 SEC Current Medications Medications (Trade) Dose Ordered Sig/Delaney Route PRN Reason Start Time Stop Time Status Last Admin Dose Admin Furosemide (Lasix) 40 mg STAT STAT IV 08/19/21 13:28 08/19/21 13:31 DC 08/19/21 13:45 Furosemide (Lasix) 40 mg STK-MED ONCE .ROUTE 08/19/21 13:39 08/19/21 13:39 DC Diltiazem HCl (Cardizem) 20 mg STAT STAT IV 08/19/21 13:50 08/19/21 13:54 DC 08/19/21 14:17 Diltiazem HCl (Cardizem) 30 mg STAT STAT PO 08/19/21 13:50 08/19/21 13:54 DC 08/19/21 14:17 Diltiazem HCl (Cardizem) 60 mg STK-MED ONCE .ROUTE 08/19/21 14:10 08/19/21 14:10 DC Diltiazem HCl (Cardizem) 50 mg STK-MED ONCE IV 08/19/21 14:11 08/19/21 14:12 DC Acetaminophen (Tylenol) 1,000 mg Q6H PRN PO PAIN 1 - 3 08/19/21 16:30 09/18/21 16:29 Pantoprazole Sodium (Protonix) 40 mg DAILY PO 08/20/21 09:00 09/19/21 08:59 08/21/21 10:07 Zolpidem Tartrate (Ambien) 5 mg HS PRN PO INSOMNIA 08/19/21 16:30 09/18/21 16:29 Furosemide (Lasix) 40 mg BID IV 08/19/21 21:00 09/18/21 20:59 08/21/21 10:07 Diltiazem HCl (Cardizem) 30 mg Q6HR PO 08/19/21 18:00 08/20/21 14:45 DC 08/20/21 12:41 Metoprolol Succinate (Toprol Xl) 50 mg DAILY PO 08/20/21 09:00 08/20/21 16:26 DC Lisinopril (Zestril) 20 mg DAILY PO 08/20/21 09:00 09/19/21 08:59 08/21/21 10:08 Sotalol HCl (Betapace) 80 mg BID PO 08/20/21 21:00 09/19/21 20:59 08/21/21 10:08 Heparin Sodium/ Dextrose 500 ml @ 0 mls/hr TITRATE IV 08/20/21 15:00 09/19/21 14:59 08/20/21 16:07 Assessment/Plan Assessment/Plan Assessment/Plan Plan 56-year-old male with history of hypertension, paroxysmal A. fib, morbid obesity presented emergency room with shortness of breath, leg edema. Patient also describes orthopnea. Work-up in the emergency room patient was in A. fib with RVR. Patient was given IV diltiazem. Heart rate went down to the 90s. Patient was supposed to be on metoprolol but according to him he stopped taking it because he had a bad reaction to it??. In the emergency room patient was given IV Lasix. Patient also was found to be hyponatremic. Patient is being admitted hospital for further management. Admit Telemetry monitoring Rate controlled IV diuresis Monitor and correct electrolytes Hyponatremia probably secondary to hypervolemia,Improved Patient feeling somewhat better this morning, less short of breath, less edema. 2D echo showed EF 20-25%. Discussed with sugar mixer. Patient scheduled for heart cath tomorrow. Eliquis was discontinued and patient was started on IV heparin drip as per sugar mixer. CT abdomen and chest being done to evaluate for pleural effusion and ascites Problems: (1) Acute CHF ICD Code: I50.9 - Heart failure, unspecified SNOMED: 20777000 (2) Atrial fibrillation with RVR ICD Code: I48.91 - Unspecified atrial fibrillation SNOMED: 754912384403475 (3) Hypertension ICD Code: I10 - Essential (primary) hypertension SNOMED: 47724935 (4) Morbid obesity ICD Code: E66.01 - Morbid (severe) obesity due to excess calories SNOMED: 159293181 (5) Hyponatremia ICD Code: E87.1 - Hypo-osmolality and hyponatremia SNOMED: 07086092 LUCERO GREGG MD Aug 21, 2021 13:18
--- NOTE | 2021-08-21 14:04 | PRM.PN ---
Subjective Subjective Date: Aug 21, 2021 Time: 13:58 Subjective Patient resting comfortably No chest pain, or palpitations Runs of NSVT this AM SOB improving Review of Systems Constitutional: No: Fever, Chills, Sweats, Weakness, Malaise, Other Eyes: No: Pain, Vision change, Conjunctivae inflammation, Eyelid inflammation, Other, Redness ENT: No: Ear pain, Ear discharge, Nose pain, Nose discharge, Nose congestion, Mouth pain, Mouth swelling, Throat pain, Throat swelling, Other Respiratory: Shortness of breath, SOB with excertion Cardiovascular: Palpitations, Orthopnea Gastrointestinal: Other (Abdominal distention); No: Nausea, Vomiting, Abdominal Pain, Diarrhea, Constipation, Melena, Hematochezia Musculoskeletal: No: other, neck pain, shoulder pain, arm pain, back pain, hand pain, leg pain, foot pain Neurological: No: Weakness, Numbness, Incoordination, Change in speech, Confusion, Seizures, Other Allergies: Coded Allergies: No Known Allergies (Unverified , 08/19/21) Scheduled Apixaban (Eliquis), 5 MG PO BID, (Reported) Lisinopril/Hydrochlorothiazide (Lisinopril-Hctz 20-25 Mg Tab), 1 TAB PO DAILY, (Reported) Metoprolol Tartrate 50MG (Lopresser 50MG), 1 TAB PO BID, (Reported) Objective Vitals and I/O Vital Sign - Last 24 Hours 08/20/21 08/20/21 08/20/21 08/20/21 15:03 15:05 15:08 20:16 Temp 98.4 98.1 Pulse 58 66 Resp 17 18 B/P (MAP) 152/94 (113) 119/76 (90) Pulse Ox 94 93 O2 Delivery Room Air Room Air Room Air 08/20/21 08/20/21 08/21/21 08/21/21 20:28 20:49 00:20 04:28 Temp 98.5 97.7 Pulse 90 93 Resp 20 17 B/P (MAP) 119/76 116/84 (95) 117/93 (101) Pulse Ox 91 91 O2 Delivery Room Air Room Air Room Air 08/21/21 08/21/21 08/21/21 10:02 10:07 10:08 Temp 97.9 Pulse 79 Resp 18 B/P (MAP) 129/101 (110) 129/101 129/101 O2 Delivery Room Air Intake and Output 08/21/21 07:00 Output Total 700 ml Balance -700 ml General: Alert, Oriented X3, moderate distress, Other (Orthopneic) HEENT: Atraumatic, PERRLA Neck: Supple, No JVD, No thyromegaly Lungs: Other (Diminished air entry bilaterally) Heart: Other (Irregularly irregular) Abdomen: Normal bowel sounds, Soft, No tenderness, Other (Distended) Extremities: Other (3+ edema) Neuro: Normal speech, Normal tone Psych/Mental Status: Mental status NL, Mood NL All Results(Lab/Rad) Laboratory Tests Test 08/20/21 14:56 08/20/21 21:52 08/21/21 03:00 08/21/21 08:05 White Blood Count 7.1 10^3/uL 6.4 10^3/uL Red Blood Count 5.18 10^6/uL 4.80 10^6/uL Hemoglobin 15.6 g/dL 14.5 g/dL Hematocrit 48.7 % 44.1 % Mean Corpuscular Volume 94.0 fL 91.9 fL Mean Corpuscular Hemoglobin 30.1 pg 30.2 pg Mean Corpuscular Hemoglobin Concent 32.0 g/dL 32.9 g/dL Red Cell Distribution Width 14.9 % 15.0 % Platelet Count 259 10^3/uL 224 10^3/uL Mean Platelet Volume 9.2 fL 9.1 fL Neutrophils (%) (Auto) 75.0 % 72.2 % Lymphocytes (%) (Auto) 16.9 % 18.0 % Monocytes (%) (Auto) 6.8 % 7.6 % Neutrophils # (Auto) 5.3 10^3/uL 4.6 10^3/uL Lymphocytes # (Auto) 1.19 10^3/uL1 1.14 10^3/uL1 Monocytes # (Auto) 0.5 10^3/uL 0.5 10^3/uL Absolute Immature Granulocyte (auto 0.01 10^3 u/L 0 10^3 u/L Absolute Eosinophils (auto) 0.1 10^3/uL 0.1 10^3/uL Immature Granulocytes % 0.10 % 0.00 % Eosinophils % 0.8 % 1.6 % Basophils % 0.4 % 0.6 % Basophils # 0.0 10^3/uL 0.0 10^3/uL Activated Partial Thromboplast Time 26.1 SEC 28.3 SEC 27.0 SEC 34.0 SEC Sodium Level 133 mmol/L Potassium Level 3.7 mmol/L Chloride Level 96.0 mmol/L Carbon Dioxide Level 27.4 mmol/L Glucose Level 110 mg/dL Blood Urea Nitrogen 15 mg/dL Creatinine 1.00 mg/dL Calcium Level 8.2 mg/dL Anion Gap 13.3 Estimated GFR () 94.2 Est GFR (CKD-EPI)(Non-Afr Bangladeshi) 77.9 BUN/Creatinine Ratio 15.0 Magnesium Level 1.4 mg/dL Test 08/21/21 12:07 Activated Partial Thromboplast Time 31.5 SEC Current Medications Medications (Trade) Dose Ordered Sig/Delaney Route PRN Reason Start Time Stop Time Status Last Admin Dose Admin Furosemide (Lasix) 40 mg STAT STAT IV 08/19/21 13:28 08/19/21 13:31 DC 08/19/21 13:45 Furosemide (Lasix) 40 mg STK-MED ONCE .ROUTE 08/19/21 13:39 08/19/21 13:39 DC Diltiazem HCl (Cardizem) 20 mg STAT STAT IV 08/19/21 13:50 08/19/21 13:54 DC 08/19/21 14:17 Diltiazem HCl (Cardizem) 30 mg STAT STAT PO 08/19/21 13:50 08/19/21 13:54 DC 08/19/21 14:17 Diltiazem HCl (Cardizem) 60 mg STK-MED ONCE .ROUTE 08/19/21 14:10 08/19/21 14:10 DC Diltiazem HCl (Cardizem) 50 mg STK-MED ONCE IV 08/19/21 14:11 08/19/21 14:12 DC Acetaminophen (Tylenol) 1,000 mg Q6H PRN PO PAIN 1 - 3 08/19/21 16:30 09/18/21 16:29 Pantoprazole Sodium (Protonix) 40 mg DAILY PO 08/20/21 09:00 09/19/21 08:59 08/21/21 10:07 Zolpidem Tartrate (Ambien) 5 mg HS PRN PO INSOMNIA 08/19/21 16:30 09/18/21 16:29 Furosemide (Lasix) 40 mg BID IV 08/19/21 21:00 09/18/21 20:59 08/21/21 10:07 Diltiazem HCl (Cardizem) 30 mg Q6HR PO 08/19/21 18:00 08/20/21 14:45 DC 08/20/21 12:41 Metoprolol Succinate (Toprol Xl) 50 mg DAILY PO 08/20/21 09:00 08/20/21 16:26 DC Lisinopril (Zestril) 20 mg DAILY PO 08/20/21 09:00 09/19/21 08:59 08/21/21 10:08 Sotalol HCl (Betapace) 80 mg BID PO 08/20/21 21:00 09/19/21 20:59 08/21/21 10:08 Heparin Sodium/ Dextrose 500 ml @ 0 mls/hr TITRATE IV 08/20/21 15:00 09/19/21 14:59 08/20/21 16:07 Assessment/Plan Assessment/Plan Assessment/Plan 1. New-onset decompensated heart failure secondary to systolic and diastolic dysfunction. 2. Atrial fibrillation with rapid ventricular response. 3. Left ventricular ejection fraction of 20%-25% on 2D echo done this admission. 4. Severe biatrial dilatation. 5. Severe tricuspid regurgitation. 6. Severe pulmonary hypertension. 7. Bilateral pleural effusions noted on 2D echo. 8. Significant amount of ascites noted on 2D echo. 9. Hypertension. 10. Noncompliance to rate controlling medications for atrial fibrillation. 11. Morbid obesity. 12. Tachycardia-induced cardiomyopathy. Plan for [facility] tomorrow NPO q MN Continue Sotalol 80mg po BID Continue Heparin gtt for AC Eliquis on-hold Continue IV Lasix Continue SGLT2 Continue Lisinopril Fluid/sodium restriction Strict I and O's Daily weights Will need WCD before discharge. ROSA as an outpatient. Will follow. COURTNEY ROUSE DO Aug 21, 2021 14:03
--- NOTE | 2021-08-21 15:05 | NUR ---
DISCHARGE PLAN - LIFEVEST CM RECEIVED PHONE CALL FROM AQUILINO ROSSI AND INFORMED PER AQUILINO THAT SHE WOULD UPDATE CM OF ANY NEW STATUS. CM FAXED NEW PROGRESS NOTE WITH DX DOCUMENTED OF REASON FOR LIFEVEST. CM RECEIVED A PHONE CALL FROM [employer] AND INFORMED THAT INSURANCE WAS DECLINING LIFEVEST DUE TO DX. CM REINFORCED THAT CARDIOMYOPATHY WAS ON THE LIST OF APPROVED DX FOR LIFEVEST. [facility]O WILL EMAIL RU AND LET CM KNOW LATER THIS AFTERNOON. CM WILL CONTINUE TO FOLLOW.
--- NOTE | 2021-08-21 15:50 | NUR ---
DISCHARGE PLAN - LIVE VEST CM CONTACTED [facility] REP AQUILINO ROSSI AND INFORMATION GIVEN FOR HER TO CONTACT MED SURG CHARGE NURSE AND CONTACT INFORMATION [phone]. CM CONTACTED [employer] TAYLOR RN CHARGE NURSE AND INFORMED OF PLAN FOR [facility] TO CONTACT CHARGE NURSE ON MED SURG TO FIT PATIENT WITH LIFE VEST ONCE APPROVED. CONTACT INFORMATION OF [facility] REP AYDEE@[phone] SHOULD THEY NEED TO CONTACT REP TO MAKE SURE PATIENT RECEIVES LIFE VEST.
--- NOTE | 2021-08-21 15:57 | DIREP ---
PROCEDURE:CT ABDOMEN W/O COMPARISON:None. INDICATIONS:abdominal distension TECHNIQUE:Axial images were created through the abdomen without intravenous contrast material. No oral contrast was administered. Sagittal and coronal reconstructions were performed from source images. FINDINGS: LUNG BASES:Dictated separately. LIVER:Sub cm hypodensity in segment 4, too small to accurately characterize. Calcified granuloma in the hepatic dome. Otherwise normal for technique. BILIARY:The gallbladder is contracted. Questionable tiny gallstone in the gallbladder neck. No biliary ductal dilatation. PANCREAS:Normal for technique. SPLEEN:Nonenlarged. Scattered calcified granulomata. ADRENALS:Normal. No mass or enlargement. URINARY TRACT:No hydronephrosis, urinary tract calculi, or contour deforming renal mass. AORTA/VASCULAR:There are aortic atherosclerotic calcifications present. No aneurysm. RETROPERITONEUM:Normal. No mass or adenopathy. BOWEL/MESENTERY:There is no evidence of intestinal obstruction in the visualized abdomen. Mild uncomplicated colonic diverticulosis. Moderate ascites. No free intraperitoneal air is seen. ABDOMINAL WALL:Significant anasarca. No mass or hernia is seen. PELVIC ORGANS:The pelvis was not imaged. BONES:Multilevel degenerative changes in the spine. No acute or aggressive osseous abnormality. Bony excrescences at the right transverse processes at L3-L4 which appear to articulate. OTHER:Noncontrast technique decreases diagnostic sensitivity. CONCLUSION: 1. No acute findings in the abdomen within the constraints of noncontrast technique. 2. Evidence of volume overload with moderate volume ascites and significant anasarca. Next item mild uncomplicated colonic diverticulosis, evidence of prior granulomatous disease, and other findings as above. 3. Chest CT reported separately. Dictated by: Ryan Sosa M.D. on 08/21/2021 at 03:49 PM
--- NOTE | 2021-08-21 16:05 | DIREP ---
PROCEDURE:CT CHEST W/O COMPARISON:[facility], CT, CT ABDOMEN W/O, 08/21/2021, 11:06 AM. [facility], CR, XRAY CHEST SINGLE VW, 08/19/2021, 01:37 PM. INDICATIONS:pleural effusion ? TECHNIQUE:Helical sections through the chest were performed from the lung apices through the diaphragms without IV contrast. Sagittal and coronal reconstructions are obtained from source images. FINDINGS: LUNGS:No consolidation. Subtle patchy infiltrate, tree-in-bud configuration, upper lobe left. Very subtle prominence of the interstitial markings lower lobe left. Volume loss lower lobe posterior segment right. PLEURA:Bilateral pleural effusions small left, large right. CARDIAC:Coronary artery calcifications MEDIASTINUM:Normal. No mass or adenopathy. STEPHAN:Granulomata right AORTA:Normal. No aneurysm. CHEST WALL:No adenopathy LIMITED ABDOMEN:Ascites BONES:Hyperostosis ventral margin of the thoracic spine, no compression fractures. OTHER:Negative. CONCLUSION:Subtle upper lobe pneumonitis left. Bilateral pleural effusions large right, small left. Dictated by: Ino Garcia MD on 08/21/2021 at 02:54 PM
[2021-08-21 18:07] VITALS: BP 117/80
[2021-08-21 20:01] VITALS: BP 113/83
[2021-08-22] VITALS (7 sets, daily range): BP systolic 111–152; BP diastolic 69–102
[2021-08-22] MEDS: HEPARIN-D5W 20,000 UNIT/500 ML 500 ML IV SCH ×2 (02:21→15:53)
[2021-08-22 02:42] LABS: BASOPHIL % 0.5 % (0.0-0.2); EOSINOPHIL # 0.1 10^3/uL (0.0-0.2); EOSINOPHIL % 1.7 % (0.0-5.0); LYMPHOCYTES % 20.2 % (24.0-44.0); MEAN CORP HGB 30.1 pg (26-34); MONOCYTES # 0.5 10^3/uL (0.3-0.8); MONOCYTES % 7.5 % (5.0-12.0); NEUTROPHIL # 4.5 10^3/uL (1.8-7.7); NEUTROPHILS % 70.1 % (41.0-85.0); PLATELET COUNT 236 10^3/uL (150-400)
[2021-08-22] MEDS: FARXIGA PO SCH (07:47)
[2021-08-22] MEDS: PROTONIX PO SCH (07:48)
[2021-08-22] MEDS: ZESTRIL PO SCH (07:49)
--- NOTE | 2021-08-22 09:22 | PRM.PN ---
Subjective Subjective Date: Aug 22, 2021 Time: 08:30 Subjective Resting comfortably, remains n.p.o. prior to heart cath, Reports no chest pain VTE VTE Risk Total Score: 5 VTE Risk Score VTE Risk: Score 0-1 = Low Risk (Aggressive mobilization; early ambulation; no VTE prophylaxis required) Score 2: Moderate Risk (Intermittent/Pneumatic Compression Device OR Lovenox/Heparin/Coumadin) Score 3-4: High Risk (Intermittent/Pneumatic Compression Device AND Lovenox/Heparin/Coumadin) Score > or =5: Highest Risk (Intermittent/Pneumatic Compression Device AND Lovenox/Heparin/Coumadin) Antico:Hep/LMWH/Coum/Xarelto: Yes Review of Systems Constitutional: No: Fever, Chills, Sweats, Weakness, Malaise, Other Eyes: No: Pain, Vision change, Conjunctivae inflammation, Eyelid inflammation, Other, Redness ENT: No: Ear pain, Ear discharge, Nose pain, Nose discharge, Nose congestion, Mouth pain, Mouth swelling, Throat pain, Throat swelling, Other Respiratory: Shortness of breath, SOB with excertion Cardiovascular: Palpitations, Orthopnea Gastrointestinal: Other (Abdominal distention); No: Nausea, Vomiting, Abdominal Pain, Diarrhea, Constipation, Melena, Hematochezia Musculoskeletal: No: other, neck pain, shoulder pain, arm pain, back pain, hand pain, leg pain, foot pain Neurological: No: Weakness, Numbness, Incoordination, Change in speech, Confusion, Seizures, Other Allergies: Coded Allergies: No Known Allergies (Unverified , 08/19/21) Scheduled Apixaban (Eliquis), 5 MG PO BID, (Reported) Lisinopril/Hydrochlorothiazide (Lisinopril-Hctz 20-25 Mg Tab), 1 TAB PO DAILY, (Reported) Metoprolol Tartrate 50MG (Lopresser 50MG), 1 TAB PO BID, (Reported) Objective Vitals and I/O Vital Sign - Last 24 Hours 08/22/21 08/22/21 07:35 07:49 Temp 98.8 Pulse 91 Resp 19 B/P (MAP) 129/102 (111) 129/102 Pulse Ox 92 Intake and Output 08/22/21 07:00 Intake Total 500 ml Output Total 900 ml Balance -400 ml General: Alert, Oriented X3, moderate distress HEENT: Atraumatic, PERRLA Neck: Supple, No JVD, No thyromegaly Lungs: Other (Diminished air entry bilaterally) Heart: Other (irregularly irregular) Abdomen: Normal bowel sounds, Soft, No tenderness Extremities: Other (1+ edema) Neuro: Normal speech, Normal tone Psych/Mental Status: Mental status NL, Mood NL All Results(Lab/Rad) Laboratory Tests Test 08/20/21 14:56 08/20/21 21:52 08/21/21 03:00 08/21/21 08:05 White Blood Count 7.1 10^3/uL 6.4 10^3/uL Red Blood Count 5.18 10^6/uL 4.80 10^6/uL Hemoglobin 15.6 g/dL 14.5 g/dL Hematocrit 48.7 % 44.1 % Mean Corpuscular Volume 94.0 fL 91.9 fL Mean Corpuscular Hemoglobin 30.1 pg 30.2 pg Mean Corpuscular Hemoglobin Concent 32.0 g/dL 32.9 g/dL Red Cell Distribution Width 14.9 % 15.0 % Platelet Count 259 10^3/uL 224 10^3/uL Mean Platelet Volume 9.2 fL 9.1 fL Neutrophils (%) (Auto) 75.0 % 72.2 % Lymphocytes (%) (Auto) 16.9 % 18.0 % Monocytes (%) (Auto) 6.8 % 7.6 % Neutrophils # (Auto) 5.3 10^3/uL 4.6 10^3/uL Lymphocytes # (Auto) 1.19 10^3/uL1 1.14 10^3/uL1 Monocytes # (Auto) 0.5 10^3/uL 0.5 10^3/uL Absolute Immature Granulocyte (auto 0.01 10^3 u/L 0 10^3 u/L Absolute Eosinophils (auto) 0.1 10^3/uL 0.1 10^3/uL Immature Granulocytes % 0.10 % 0.00 % Eosinophils % 0.8 % 1.6 % Basophils % 0.4 % 0.6 % Basophils # 0.0 10^3/uL 0.0 10^3/uL Activated Partial Thromboplast Time 26.1 SEC 28.3 SEC 27.0 SEC 34.0 SEC Sodium Level 133 mmol/L Potassium Level 3.7 mmol/L Chloride Level 96.0 mmol/L Carbon Dioxide Level 27.4 mmol/L Glucose Level 110 mg/dL Blood Urea Nitrogen 15 mg/dL Creatinine 1.00 mg/dL Calcium Level 8.2 mg/dL Anion Gap 13.3 Estimated GFR () 94.2 Est GFR (CKD-EPI)(Non-Afr Guyanese) 77.9 BUN/Creatinine Ratio 15.0 Magnesium Level 1.4 mg/dL Test 08/21/21 12:07 Activated Partial Thromboplast Time 31.5 SEC Current Medications Medications (Trade) Dose Ordered Sig/Delaney Route PRN Reason Start Time Stop Time Status Last Admin Dose Admin Furosemide (Lasix) 40 mg STAT STAT IV 08/19/21 13:28 08/19/21 13:31 DC 08/19/21 13:45 Furosemide (Lasix) 40 mg STK-MED ONCE .ROUTE 08/19/21 13:39 08/19/21 13:39 DC Diltiazem HCl (Cardizem) 20 mg STAT STAT IV 08/19/21 13:50 08/19/21 13:54 DC 08/19/21 14:17 Diltiazem HCl (Cardizem) 30 mg STAT STAT PO 08/19/21 13:50 08/19/21 13:54 DC 08/19/21 14:17 Diltiazem HCl (Cardizem) 60 mg STK-MED ONCE .ROUTE 08/19/21 14:10 08/19/21 14:10 DC Diltiazem HCl (Cardizem) 50 mg STK-MED ONCE IV 08/19/21 14:11 08/19/21 14:12 DC Acetaminophen (Tylenol) 1,000 mg Q6H PRN PO PAIN 1 - 3 08/19/21 16:30 09/18/21 16:29 Pantoprazole Sodium (Protonix) 40 mg DAILY PO 08/20/21 09:00 09/19/21 08:59 08/21/21 10:07 Zolpidem Tartrate (Ambien) 5 mg HS PRN PO INSOMNIA 08/19/21 16:30 09/18/21 16:29 Furosemide (Lasix) 40 mg BID IV 08/19/21 21:00 09/18/21 20:59 08/21/21 10:07 Diltiazem HCl (Cardizem) 30 mg Q6HR PO 08/19/21 18:00 08/20/21 14:45 DC 08/20/21 12:41 Metoprolol Succinate (Toprol Xl) 50 mg DAILY PO 08/20/21 09:00 08/20/21 16:26 DC Lisinopril (Zestril) 20 mg DAILY PO 08/20/21 09:00 09/19/21 08:59 08/21/21 10:08 Sotalol HCl (Betapace) 80 mg BID PO 08/20/21 21:00 09/19/21 20:59 08/21/21 10:08 Heparin Sodium/ Dextrose 500 ml @ 0 mls/hr TITRATE IV 08/20/21 15:00 09/19/21 14:59 08/20/21 16:07 Course Sepsis Screening Results: Posi: NEGATIVE Sepsis Qualifier/Stage: NO DEFINITE RISK Duration or Total Time Spent w: 15M Vitals & review Data Vital Sign - Last 24 Hours 08/22/21 08/22/21 07:35 07:49 Temp 98.8 Pulse 91 Resp 19 B/P (MAP) 129/102 (111) 129/102 Pulse Ox 92 Intake and Output 08/22/21 07:00 Intake Total 500 ml Output Total 900 ml Balance -400 ml Laboratory Tests Test 08/20/21 14:56 08/20/21 21:52 08/21/21 03:00 08/21/21 08:05 White Blood Count 7.1 10^3/uL 6.4 10^3/uL Red Blood Count 5.18 10^6/uL 4.80 10^6/uL Hemoglobin 15.6 g/dL 14.5 g/dL Hematocrit 48.7 % 44.1 % Mean Corpuscular Volume 94.0 fL 91.9 fL Mean Corpuscular Hemoglobin 30.1 pg 30.2 pg Mean Corpuscular Hemoglobin Concent 32.0 g/dL 32.9 g/dL Red Cell Distribution Width 14.9 % 15.0 % Platelet Count 259 10^3/uL 224 10^3/uL Mean Platelet Volume 9.2 fL 9.1 fL Neutrophils (%) (Auto) 75.0 % 72.2 % Lymphocytes (%) (Auto) 16.9 % 18.0 % Monocytes (%) (Auto) 6.8 % 7.6 % Neutrophils # (Auto) 5.3 10^3/uL 4.6 10^3/uL Lymphocytes # (Auto) 1.19 10^3/uL1 1.14 10^3/uL1 Monocytes # (Auto) 0.5 10^3/uL 0.5 10^3/uL Absolute Immature Granulocyte (auto 0.01 10^3 u/L 0 10^3 u/L Absolute Eosinophils (auto) 0.1 10^3/uL 0.1 10^3/uL Immature Granulocytes % 0.10 % 0.00 % Eosinophils % 0.8 % 1.6 % Basophils % 0.4 % 0.6 % Basophils # 0.0 10^3/uL 0.0 10^3/uL Activated Partial Thromboplast Time 26.1 SEC 28.3 SEC 27.0 SEC 34.0 SEC Sodium Level 133 mmol/L Potassium Level 3.7 mmol/L Chloride Level 96.0 mmol/L Carbon Dioxide Level 27.4 mmol/L Glucose Level 110 mg/dL Blood Urea Nitrogen 15 mg/dL Creatinine 1.00 mg/dL Calcium Level 8.2 mg/dL Anion Gap 13.3 Estimated GFR () 94.2 Est GFR (CKD-EPI)(Non-Afr Guyanese) 77.9 BUN/Creatinine Ratio 15.0 Magnesium Level 1.4 mg/dL Test 08/21/21 12:07 08/21/21 16:18 08/21/21 21:50 08/22/21 02:35 Activated Partial Thromboplast Time 31.5 SEC 31.3 SEC 40.6 SEC 40.6 SEC White Blood Count 6.4 10^3/uL Red Blood Count 4.82 10^6/uL Hemoglobin 14.5 g/dL Hematocrit 44.9 % Mean Corpuscular Volume 93.2 fL Mean Corpuscular Hemoglobin 30.1 pg Mean Corpuscular Hemoglobin Concent 32.3 g/dL Red Cell Distribution Width 15.0 % Platelet Count 236 10^3/uL Mean Platelet Volume 9.0 fL Neutrophils (%) (Auto) 70.1 % Lymphocytes (%) (Auto) 20.2 % Monocytes (%) (Auto) 7.5 % Neutrophils # (Auto) 4.5 10^3/uL Lymphocytes # (Auto) 1.30 10^3/uL1 Monocytes # (Auto) 0.5 10^3/uL Absolute Immature Granulocyte (auto 0 10^3 u/L Absolute Eosinophils (auto) 0.1 10^3/uL Immature Granulocytes % 0.00 % Eosinophils % 1.7 % Basophils % 0.5 % Basophils # 0.0 10^3/uL Sodium Level 134 mmol/L Potassium Level 3.2 mmol/L Chloride Level 96.0 mmol/L Carbon Dioxide Level 29.0 mmol/L Glucose Level 120 mg/dL Blood Urea Nitrogen 17 mg/dL Creatinine 0.91 mg/dL Calcium Level 8.1 mg/dL Anion Gap 12.2 Estimated GFR () 105.1 Est GFR (CKD-EPI)(Non-Afr Guyanese) 86.8 BUN/Creatinine Ratio 18.0 Current Medications Medications (Trade) Dose Ordered Sig/Delaney PRN Reason Start Time Stop Time Status Last Admin Acetaminophen (Tylenol) 1,000 mg Q6H PRN PAIN 1 - 3 08/19/21 16:30 09/18/21 16:29 Furosemide (Lasix) 40 mg BID 08/19/21 21:00 09/18/21 20:59 08/21/21 20:58 Heparin Sodium/ Dextrose 500 ml @ 0 mls/hr TITRATE 08/20/21 15:00 09/19/21 14:59 08/22/21 02:21 Lisinopril (Zestril) 20 mg DAILY 08/20/21 09:00 09/19/21 08:59 08/21/21 10:08 Pantoprazole Sodium (Protonix) 40 mg DAILY 08/20/21 09:00 09/19/21 08:59 08/21/21 10:07 Sotalol HCl (Betapace) 80 mg BID 08/20/21 21:00 09/19/21 20:59 08/21/21 20:59 Zolpidem Tartrate (Ambien) 5 mg HS PRN INSOMNIA 08/19/21 16:30 09/18/21 16:29 LEVEL 1 SEPSIS INFECTION CRITE: None/Not assessed LEVEL 2-SIRS (LIST ALL THAT AP: HR>90/min Cardiovascular Evidence: Not Assessed or None Hematologic Evidence: None/Not assessed Hepatic Evidence: None/Not assessed Metabolic Evidence: None/Not assessed Neurological Evidence: None/Not assessed Respiratory Evidence: None/Not assessed Renal Evidence: None/Not assessed O2 Sat by Pulse Oximetry: 92 Assessment/Plan Assessment/Plan Assessment/Plan 1. New-onset decompensated heart failure secondary to systolic and diastolic dysfunction. 2. Atrial fibrillation with rapid ventricular response. 3. Left ventricular ejection fraction of 20%-25% on 2D echo done this admission. 4. Severe biatrial dilatation. 5. Severe tricuspid regurgitation. 6. Severe pulmonary hypertension. 7. Bilateral pleural effusions noted on 2D echo. 8. Significant amount of ascites noted on 2D echo. 9. Hypertension. 10. Noncompliance to rate controlling medications for atrial fibrillation. 11. Morbid obesity. 12. Tachycardia-induced cardiomyopathy. Plan for [facility] tomorrow NPO q [place] Continue Sotalol 80mg po BID Continue Heparin gtt for AC Eliquis on-hold Continue IV Lasix Continue SGLT2 Continue Lisinopril Fluid/sodium restriction Strict I and O's Daily weights Will need WCD before discharge. ROSA as an outpatient. Will follow. Problems: (1) Acute systolic CHF (congestive heart failure), NYHA class 3 Status: Acute Assessment & Plan: Markedly improved with IV diuretics, EF 20 to 25% per echo, pending left heart catheterization by cardiology today with likely observation thereafter over the next 24 hours; Overall edema is markedly better ICD Code: I50.21 - Acute systolic (congestive) heart failure SNOMED: 728598884, [id number], [id number] (2) Atrial fibrillation Status: Chronic Assessment & Plan: Rate controlled on sotalol 80 ICD Code: I48.91 - Unspecified atrial fibrillation SNOMED: 95444143 (3) Morbid obesity Status: Chronic Assessment & Plan: Counseled patient on weight loss ICD Code: E66.01 - Morbid (severe) obesity due to excess calories SNOMED: 594556191 (4) Hypertension Status: Chronic Assessment & Plan: Normotensive on Lisinopril and sotalol ICD Code: I10 - Essential (primary) hypertension SNOMED: 72291244 CAYLA SWIFT MD Aug 22, 2021 09:22
[2021-08-22] MEDS: BETAPACE PO SCH ×2 (09:32→20:20)
[2021-08-22] MEDS: LASIX IV SCH ×2 (09:32→20:21)
[2021-08-22] MEDS ORDERED: VERSED ONE (10:14)
[2021-08-22] MEDS ORDERED: SUBLIMAZE ONE (10:14)
[2021-08-22] MEDS ORDERED: XYLOCAINE ONE (10:15)
[2021-08-22] MEDS ORDERED: NS 1000ML 1,000 ML ONE (10:53)
--- NOTE | 2021-08-22 14:40 | NUR ---
SRIDEVI MCNEIL RN IN PATIENT ROOM TO FIT LIFE VEST
--- NOTE | 2021-08-22 15:04 | NUR ---
PTT DR. ROUSE AUTHORIZES USE OF 0900 PTT FOR RESUMING OF HEPARIN DRIP UNTIL 1999.
--- NOTE | 2021-08-22 18:20 | [facility] ---
DATE OF SERVICE: 08/22/2021 DICTATOR NAME: COURTNEY ROUSE DO INDICATIONS: New cardiomyopathy/nonsustained ventricular tachycardia/atrial fibrillation/CHF. This is a 56-year-old male who presented to the Emergency Room initially with AFib with RVR as well as decompensated heart failure. A 2D echo showed left ventricular ejection fraction of 20-25%. He had runs of nonsustained ventricular tachycardia and so he was set up for left heart catheterization after informed consent were obtained. PROCEDURES PERFORMED: 1. Selective coronary angiography. 2. Left ventriculography. 3. Hemostasis established using a 6-[place]se Mynx control. PROCEDURE IN DETAIL: Access was obtained using a 4-[place] micropuncture kit to cannulate the right common femoral artery. The 4-[place] sheath was then upsized to a 6-[place] regular short sheath. Diagnostic angiography was then carried out using the Deng left catheter initially to engage the left main. The Deng left catheter was eventually exchanged for an Amplatz left 1 catheter. The left main was noted to be angiographically normal. It trifurcates into left anterior descending artery and the left circumflex artery as well as the ramus intermedius artery. The left anterior descending artery is noted to have a 40% lesion in the mid segment of the vessel. It runs in the interventricular groove, wrapping around the apex to form a type 3 LAD. The remaining segments of the LAD is noted to have mild luminal irregularities. The LAD gives rise to 2 diagonal branches that are noted to have mild luminal irregularities. The ramus intermedius branch is a small caliber vessel with mild luminal irregularities. The left circumflex artery is noted to be codominant and with mild luminal irregularities. Gives rise to 3 obtuse marginal branches that are all noted to have mild luminal irregularities. The Deng left catheter was then exchanged for a Deng right catheter, which was used to engage the RCA. RCA angiography showed a dominant RCA with mild luminal irregularities. The RCA bifurcates distally to a right posterior descending artery and a right posterolateral artery. Both vessels are noted to have mild luminal irregularities. The Deng right catheter was then exchanged for a pigtail catheter, which was used to cross the aortic valve into the left ventricle. Left ventriculography was performed. LVEF was noted to be 20%. LVEDP was noted to be 12. Upon pullback of the pigtail catheter, there was no gradient across the aortic valve. The pigtail catheter was then taken out and hemostasis was established using a 6-[place]orese Mynx control. The patient left the catheterization laboratory technician in stable condition. There were no complications. IMPRESSION: 1. Nonobstructive coronary artery disease. 2. Nonischemic dilated cardiomyopathy. 3. Tachycardia-induced cardiomyopathy. 4. Left ventricular ejection fraction of 20%. 5. Left ventricular end-diastolic pressure of 12. 6. Selective coronary angiography. 7. Left ventriculography. 8. Hemostasis established using a 6-[place] Mynx control. RECOMMENDATIONS: No coronary intervention is necessary at this time. Optimization of cardiac meds have been strongly recommended. The patient would benefit from a wearable cardioverter device before discharge for primary prevention of sudden cardiac . He has been instructed to follow up with me in the clinic in 2-3 weeks. Mychal GARCIA D.O. DR: JUAN ANTONIO TID: [id number] RECEIPT: [id number]
[2021-08-22] MEDS: ELIQUIS PO SCH (20:20)
[2021-08-22] MEDS: KLONOPIN PO SCH (20:21)
[2021-08-23 05:14] VITALS: BP 124/93
[2021-08-23 08:00] VITALS: BP 131/71
[2021-08-23] MEDS: PROTONIX PO SCH (08:53)
[2021-08-23] MEDS: LASIX IV SCH (08:53)
[2021-08-23] MEDS: FARXIGA PO SCH (08:54)
[2021-08-23] MEDS: ELIQUIS PO SCH (08:54)
[2021-08-23] MEDS: BETAPACE PO SCH (08:54)
[2021-08-23] MEDS: ZESTRIL PO SCH (08:54)
[2021-08-23] MEDS: KLONOPIN PO SCH ×2 (08:54→09:00)
[2021-08-23] MEDS ORDERED: DAPA10TA PO (10:27)
[2021-08-23] MEDS ORDERED: LISI20TA21 PO (10:27)
[2021-08-23] MEDS ORDERED: SOTA80TA18 PO (10:27)
[2021-08-23] MEDS ORDERED: FURO40TA4 PO (10:27)
--- NOTE | 2021-08-23 10:32 | PRM.DC ---
Discharge Summary Date of Discharge: Aug 23, 2021 Time of Request to Discharge: 10:30 Reason for Visit: Shortness of breath and leg edema. Hospital Course Mr. Suazo is a pleasant 56-year-old gentleman who presented with shortness of breath and diffuse edema for which she was initially started on IV Lasix oxygen and ultimately sotalol to control his heart rate. The patient steadily lost fluid weight, and underwent echocardiography which revealed an EF of 25%. As a consequence, he was thereafter taken for left heart catheterization by Dr. REIS which failed to demonstrate any significant lesions. Given his severely reduced EF, he is Pending AICD placement, and was fitted with a LifeVest, however this was too small for the patient and he was unable to get the lead set correctly against his skin. As the patient will follow up later in the week with Dr. Perry for AICD placement, he will follow-up over the phone with the company and attempt to get the LifeVest working if not then he will have an AICD very soon regardless. General: Alert, Oriented X3, Cooperative HEENT: Atraumatic, PERRLA, EOMI Neck: No JVD, No thyromegaly Lungs: Clear to auscultation, Normal air movement Heart: Regular rate, Normal S1, Normal S2 Abdomen: Normal bowel sounds, Soft Extremities: No clubbing, No cyanosis, Other (1+ edema) Skin: No rashes, No breakdown Neuro: Normal gait, Normal speech, Strength at 5/5 X4 ext Psych/Mental Status: Mental status NL, Mood NL Scheduled Apixaban (Eliquis), 5 MG PO BID, (Reported) Dapagliflozin Propanediol (Farxiga), 10 MG PO DAILY Furosemide (Furosemide), 40 MG PO daily Lisinopril (Lisinopril), 20 MG PO DAILY Lisinopril/Hydrochlorothiazide (Lisinopril-Hctz 20-25 Mg Tab), 1 TAB PO DAILY, (Reported) Metoprolol Tartrate 50MG (Lopresser 50MG), 1 TAB PO BID, (Reported) Sotalol Hcl (Betapace), 80 MG PO BID Sepsis Evaluation @ Discharge Vital Sign - Last 24 Hours 08/22/21 08/22/21 07:35 07:49 Temp 98.8 Pulse 91 Resp 19 B/P (MAP) 129/102 (111) 129/102 Pulse Ox 92 Intake and Output 08/22/21 07:00 Intake Total 500 ml Output Total 900 ml Balance -400 ml Laboratory Tests Test 08/20/21 14:56 08/20/21 21:52 08/21/21 03:00 08/21/21 08:05 White Blood Count 7.1 10^3/uL 6.4 10^3/uL Red Blood Count 5.18 10^6/uL 4.80 10^6/uL Hemoglobin 15.6 g/dL 14.5 g/dL Hematocrit 48.7 % 44.1 % Mean Corpuscular Volume 94.0 fL 91.9 fL Mean Corpuscular Hemoglobin 30.1 pg 30.2 pg Mean Corpuscular Hemoglobin Concent 32.0 g/dL 32.9 g/dL Red Cell Distribution Width 14.9 % 15.0 % Platelet Count 259 10^3/uL 224 10^3/uL Mean Platelet Volume 9.2 fL 9.1 fL Neutrophils (%) (Auto) 75.0 % 72.2 % Lymphocytes (%) (Auto) 16.9 % 18.0 % Monocytes (%) (Auto) 6.8 % 7.6 % Neutrophils # (Auto) 5.3 10^3/uL 4.6 10^3/uL Lymphocytes # (Auto) 1.19 10^3/uL1 1.14 10^3/uL1 Monocytes # (Auto) 0.5 10^3/uL 0.5 10^3/uL Absolute Immature Granulocyte (auto 0.01 10^3 u/L 0 10^3 u/L Absolute Eosinophils (auto) 0.1 10^3/uL 0.1 10^3/uL Immature Granulocytes % 0.10 % 0.00 % Eosinophils % 0.8 % 1.6 % Basophils % 0.4 % 0.6 % Basophils # 0.0 10^3/uL 0.0 10^3/uL Activated Partial Thromboplast Time 26.1 SEC 28.3 SEC 27.0 SEC 34.0 SEC Sodium Level 133 mmol/L Potassium Level 3.7 mmol/L Chloride Level 96.0 mmol/L Carbon Dioxide Level 27.4 mmol/L Glucose Level 110 mg/dL Blood Urea Nitrogen 15 mg/dL Creatinine 1.00 mg/dL Calcium Level 8.2 mg/dL Anion Gap 13.3 Estimated GFR () 94.2 Est GFR (CKD-EPI)(Non-Afr Dutch) 77.9 BUN/Creatinine Ratio 15.0 Magnesium Level 1.4 mg/dL Test 08/21/21 12:07 08/21/21 16:18 08/21/21 21:50 08/22/21 02:35 Activated Partial Thromboplast Time 31.5 SEC 31.3 SEC 40.6 SEC 40.6 SEC White Blood Count 6.4 10^3/uL Red Blood Count 4.82 10^6/uL Hemoglobin 14.5 g/dL Hematocrit 44.9 % Mean Corpuscular Volume 93.2 fL Mean Corpuscular Hemoglobin 30.1 pg Mean Corpuscular Hemoglobin Concent 32.3 g/dL Red Cell Distribution Width 15.0 % Platelet Count 236 10^3/uL Mean Platelet Volume 9.0 fL Neutrophils (%) (Auto) 70.1 % Lymphocytes (%) (Auto) 20.2 % Monocytes (%) (Auto) 7.5 % Neutrophils # (Auto) 4.5 10^3/uL Lymphocytes # (Auto) 1.30 10^3/uL1 Monocytes # (Auto) 0.5 10^3/uL Absolute Immature Granulocyte (auto 0 10^3 u/L Absolute Eosinophils (auto) 0.1 10^3/uL Immature Granulocytes % 0.00 % Eosinophils % 1.7 % Basophils % 0.5 % Basophils # 0.0 10^3/uL Sodium Level 134 mmol/L Potassium Level 3.2 mmol/L Chloride Level 96.0 mmol/L Carbon Dioxide Level 29.0 mmol/L Glucose Level 120 mg/dL Blood Urea Nitrogen 17 mg/dL Creatinine 0.91 mg/dL Calcium Level 8.1 mg/dL Anion Gap 12.2 Estimated GFR () 105.1 Est GFR (CKD-EPI)(Non-Afr Dutch) 86.8 BUN/Creatinine Ratio 18.0 Current Medications Medications (Trade) Dose Ordered Sig/Delaney PRN Reason Start Time Stop Time Status Last Admin Acetaminophen (Tylenol) 1,000 mg Q6H PRN PAIN 1 - 3 08/19/21 16:30 09/18/21 16:29 Furosemide (Lasix) 40 mg BID 08/19/21 21:00 09/18/21 20:59 08/21/21 20:58 Heparin Sodium/ Dextrose 500 ml @ 0 mls/hr TITRATE 08/20/21 15:00 09/19/21 14:59 08/22/21 02:21 Lisinopril (Zestril) 20 mg DAILY 08/20/21 09:00 09/19/21 08:59 08/21/21 10:08 Pantoprazole Sodium (Protonix) 40 mg DAILY 08/20/21 09:00 09/19/21 08:59 08/21/21 10:07 Sotalol HCl (Betapace) 80 mg BID 08/20/21 21:00 09/19/21 20:59 08/21/21 20:59 Zolpidem Tartrate (Ambien) 5 mg HS PRN INSOMNIA 08/19/21 16:30 09/18/21 16:29 Course Sepsis Screening Results: Posi: NEGATIVE Sepsis Qualifier/Stage: NO DEFINITE RISK Duration or Total Time Spent w: 15M Vitals & review Data Vital Sign - Last 24 Hours 08/22/21 08/22/21 07:35 07:49 Temp 98.8 Pulse 91 Resp 19 B/P (MAP) 129/102 (111) 129/102 Pulse Ox 92 Intake and Output 08/22/21 07:00 Intake Total 500 ml Output Total 900 ml Balance -400 ml Laboratory Tests Test 08/20/21 14:56 08/20/21 21:52 08/21/21 03:00 08/21/21 08:05 White Blood Count 7.1 10^3/uL 6.4 10^3/uL Red Blood Count 5.18 10^6/uL 4.80 10^6/uL Hemoglobin 15.6 g/dL 14.5 g/dL Hematocrit 48.7 % 44.1 % Mean Corpuscular Volume 94.0 fL 91.9 fL Mean Corpuscular Hemoglobin 30.1 pg 30.2 pg Mean Corpuscular Hemoglobin Concent 32.0 g/dL 32.9 g/dL Red Cell Distribution Width 14.9 % 15.0 % Platelet Count 259 10^3/uL 224 10^3/uL Mean Platelet Volume 9.2 fL 9.1 fL Neutrophils (%) (Auto) 75.0 % 72.2 % Lymphocytes (%) (Auto) 16.9 % 18.0 % Monocytes (%) (Auto) 6.8 % 7.6 % Neutrophils # (Auto) 5.3 10^3/uL 4.6 10^3/uL Lymphocytes # (Auto) 1.19 10^3/uL1 1.14 10^3/uL1 Monocytes # (Auto) 0.5 10^3/uL 0.5 10^3/uL Absolute Immature Granulocyte (auto 0.01 10^3 u/L 0 10^3 u/L Absolute Eosinophils (auto) 0.1 10^3/uL 0.1 10^3/uL Immature Granulocytes % 0.10 % 0.00 % Eosinophils % 0.8 % 1.6 % Basophils % 0.4 % 0.6 % Basophils # 0.0 10^3/uL 0.0 10^3/uL Activated Partial Thromboplast Time 26.1 SEC 28.3 SEC 27.0 SEC 34.0 SEC Sodium Level 133 mmol/L Potassium Level 3.7 mmol/L Chloride Level 96.0 mmol/L Carbon Dioxide Level 27.4 mmol/L Glucose Level 110 mg/dL Blood Urea Nitrogen 15 mg/dL Creatinine 1.00 mg/dL Calcium Level 8.2 mg/dL Anion Gap 13.3 Estimated GFR () 94.2 Est GFR (CKD-EPI)(Non-Afr Dutch) 77.9 BUN/Creatinine Ratio 15.0 Magnesium Level 1.4 mg/dL Test 08/21/21 12:07 08/21/21 16:18 08/21/21 21:50 08/22/21 02:35 Activated Partial Thromboplast Time 31.5 SEC 31.3 SEC 40.6 SEC 40.6 SEC White Blood Count 6.4 10^3/uL Red Blood Count 4.82 10^6/uL Hemoglobin 14.5 g/dL Hematocrit 44.9 % Mean Corpuscular Volume 93.2 fL Mean Corpuscular Hemoglobin 30.1 pg Mean Corpuscular Hemoglobin Concent 32.3 g/dL Red Cell Distribution Width 15.0 % Platelet Count 236 10^3/uL Mean Platelet Volume 9.0 fL Neutrophils (%) (Auto) 70.1 % Lymphocytes (%) (Auto) 20.2 % Monocytes (%) (Auto) 7.5 % Neutrophils # (Auto) 4.5 10^3/uL Lymphocytes # (Auto) 1.30 10^3/uL1 Monocytes # (Auto) 0.5 10^3/uL Absolute Immature Granulocyte (auto 0 10^3 u/L Absolute Eosinophils (auto) 0.1 10^3/uL Immature Granulocytes % 0.00 % Eosinophils % 1.7 % Basophils % 0.5 % Basophils # 0.0 10^3/uL Sodium Level 134 mmol/L Potassium Level 3.2 mmol/L Chloride Level 96.0 mmol/L Carbon Dioxide Level 29.0 mmol/L Glucose Level 120 mg/dL Blood Urea Nitrogen 17 mg/dL Creatinine 0.91 mg/dL Calcium Level 8.1 mg/dL Anion Gap 12.2 Estimated GFR () 105.1 Est GFR (CKD-EPI)(Non-Afr Dutch) 86.8 BUN/Creatinine Ratio 18.0 Current Medications Medications (Trade) Dose Ordered Sig/Delaney PRN Reason Start Time Stop Time Status Last Admin Acetaminophen (Tylenol) 1,000 mg Q6H PRN PAIN 1 - 3 08/19/21 16:30 09/18/21 16:29 Furosemide (Lasix) 40 mg BID 08/19/21 21:00 09/18/21 20:59 08/21/21 20:58 Heparin Sodium/ Dextrose 500 ml @ 0 mls/hr TITRATE 08/20/21 15:00 09/19/21 14:59 08/22/21 02:21 Lisinopril (Zestril) 20 mg DAILY 08/20/21 09:00 09/19/21 08:59 08/21/21 10:08 Pantoprazole Sodium (Protonix) 40 mg DAILY 08/20/21 09:00 09/19/21 08:59 08/21/21 10:07 Sotalol HCl (Betapace) 80 mg BID 08/20/21 21:00 09/19/21 20:59 08/21/21 20:59 Zolpidem Tartrate (Ambien) 5 mg HS PRN INSOMNIA 08/19/21 16:30 09/18/21 16:29 LEVEL 1 SEPSIS INFECTION CRITE: None/Not assessed LEVEL 2-SIRS (LIST ALL THAT AP: None/Not assessed Cardiovascular Evidence: Not Assessed or None Hematologic Evidence: None/Not assessed Hepatic Evidence: None/Not assessed Metabolic Evidence: None/Not assessed Neurological Evidence: None/Not assessed Respiratory Evidence: None/Not assessed Renal Evidence: None/Not assessed O2 Sat by Pulse Oximetry: 96 JAMISON,CAYLA M MD Aug 23, 2021 10:32
[2021-08-23 11:15] VITALS: BP 121/61
[2021-08-23 11:40] VITALS: BP 121/61
--- NOTE | 2021-08-23 11:40 | NUR ---
DISCHARGE INSTRUCTIONS GIVEN TO PT, VOICED UNDERSTANDING. DC'D IV , BLEEDING COTROLLED PT TOLERATED WELL. PT DISCHARGED VIA W/C ACCOMPANIED BY NURSING, TO PERSONAL VEHICLE. NO S/S OF DISTRESS OBSERVED
== END 2021-08-23 11:40 | disposition home or self-care (01) | DRG 286 ==
LOC: ER 13:00 → INTOOBSV 14:43 → MS 14:43 → UNDOADMOB 14:43 → OBSVTOIN 14:43
PROVIDERS: ADMIT Internal Medicine; ATTEND Internal Medicine
PROC: B2111ZZ Fluoroscopy of Multiple Coronary Arteries using Low Osmolar Contrast (ICD-10-PCS; 2021-08-22)
PROC: 4A023N7 Measurement of Cardiac Sampling and Pressure, Left Heart, Percutaneous Approach (ICD-10-PCS; 2021-08-22)
PROC: B2151ZZ Fluoroscopy of Left Heart using Low Osmolar Contrast (ICD-10-PCS; principal; 2021-08-22 10:00)
DX: I11.0 Hypertensive heart disease with heart failure (principal); I50.43 Acute on chronic combined systolic (congestive) and diastolic (congestive) heart failure; E87.1 Hypo-osmolality and hyponatremia; I47.2 Ventricular tachycardia; R18.8 Other ascites; Z68.42 Body mass index [BMI] 45.0-49.9, adult; E66.01 Morbid (severe) obesity due to excess calories; I42.0 Dilated cardiomyopathy; I07.1 Rheumatic tricuspid insufficiency; Z20.822 Contact with and (suspected) exposure to COVID-19; I25.10 Atherosclerotic heart disease of native coronary artery without angina pectoris; I27.20 Pulmonary hypertension, unspecified; I48.0 Paroxysmal atrial fibrillation; Z91.19 Patient's noncompliance with other medical treatment and regimen; Z95.810 Presence of automatic (implantable) cardiac defibrillator; Z71.3 Dietary counseling and surveillance
CPT/HCPCS: 36415; 71045; 71250; 74150; 80048; 80053; 82550; 82553; 83735; 83880; 84484; 85025; 85379; 85610; 85730; 87426; 93005; 93306; 93458; 99152; 99153; 99285; C1760; C1769; C1894; G0378; J1644; J1940; J2250; J3010; J3490; J7030; Q9967